=== PATIENT | female | born 1945 | race Caucasian/White ===

== ENCOUNTER → 2017-10-02 | Outpatient (CLI) | payer MEDICARE, OTHER ==
[2017-10-02 12:31] LABS: HEMATOCRIT 40.9 % (37.0-47.0); HEMOGLOBIN 13.6 gm/dL (12.0-15.0); MCH 29.9 pg (26.0-34.0); MCHC 33.3 g/dL (28.0-37.0); MCV 89.8 fL (80.0-100.0); RBC 4.56 mil/uL (4.20-5.00)
[2017-10-04 13:08] LABS: ANA INTERPRETATION Positive (Negative)
== END ==
LOC: M.LAB 11:54
DX: H20.021 Recurrent acute iridocyclitis, right eye (principal)